=== PATIENT | male | born 1995 | race Two or more races ===

== ENCOUNTER 2022-05-26 09:16 | Emergency (ER) | payer OTHER ==
[~2022-05-26] VITALS: Ht 182.9 cm; Wt 82.8 kg
[2022-05-26 10:12] LABS: Basophils # (auto) 0.1 10 ^3/uL (0-0.2); Basophils % (auto) 0.4 % (0.0-2.0); Eosinophils # (auto) 0 10 ^3/uL (0-0.8); Eosinophils % (auto) 0.4 % (0.0-7.0); Hematocrit 43.3 % (41.0-53.0); Lymphocytes # (auto) 1.4 10 ^3/uL (0.4-5.4); Lymphocytes % (auto) 10.8 % (10.0-50.0); Mean Corpuscular Hgb Conc. 34.6 g/dL (32.0-36.0); Mean Corpuscular Volume 83.8 fL (80.0-100.0); Monocytes # (auto) 0.6 10 ^3/uL (0-1.3); Monocytes % (auto) 4.3 % (0.0-12.0); Neutrophils # (auto) 10.8 10 ^3/uL (1.6-8.6); Neutrophils % (auto) 84.1 % (37.0-80.0); Nucleated Red Blood Cells % 0.1 %; Red Blood Cells 5.16 10^6/uL (4.5-5.90); White Blood Cell 12.8 10^3/uL (4.4-10.8)
[2022-05-26 10:32] LABS: Albumin 4.5 g/dL (3.4-5.0); Calcium 9.7 mg/dL (8.5-10.1); Potassium 4.4 mmol/L (3.5-5.1)
[2022-05-26 10:37] LABS: BUN/Creatinine Ratio 12.2; Bilirubin, Total 0.9 mg/dL (0.2-1.0); Total Protein 8.2 g/dL (6.4-8.2)
[2022-05-26 10:57] LABS: Urine Bacteria NONE SEEN /hpf (None Seen); Urine Blood Negative /uL (Negative); Urine Mucus FEW (None Seen); Urine Specific Gravity 1.025 (1.001-1.035); Urine WBC <1 /hpf (0 - 3)
[2022-05-26] MEDS ORDERED: IOHEXOL 300 MG/ML 100ML BOTTLE IJ ONE (15:56)
[2022-05-26] MEDS ORDERED: ACETAMINOPHEN 325 MG TAB PO ONE (16:30)
[2022-05-26 16:59] VITALS: BP 127/82
== END 2022-05-26 17:23 | disposition home or self-care (01) ==
LOC: ER 09:16
DX: R10.32 Left lower quadrant pain (principal); R10.31 Right lower quadrant pain
CPT/HCPCS: 36415; 74176; 74177; 80053; 81001; 83690; 85025; 99285; Q9967